=== PATIENT | male | born 1985 | race African-American/Black ===

== ENCOUNTER 2023-05-21 23:43 | Emergency (ER) | payer OTHER ==
[~2023-05-21] VITALS: Ht 180.3 cm; Wt 90.7 kg
[2023-05-22 00:03] VITALS: O2SAT 98
[2023-05-22] MEDS ORDERED: TRAMADOL HCL 50 MG TAB PO STA (00:41)
[2023-05-22] MEDS ORDERED: TRAMADOL HCL 50 MG TAB ONE (00:50)
[2023-05-22] MEDS ORDERED: ULTRAM 50MG50 MG PO (00:52)
== END 2023-05-22 01:26 | disposition home or self-care (01) ==
LOC: FSED 23:55
DX: S91.311A Laceration without foreign body, right foot, initial encounter (principal); S93.491A Sprain of other ligament of right ankle, initial encounter; W22.09XA Striking against other stationary object, initial encounter; Y93.01 Activity, walking, marching and hiking; Y92.89 Other specified places as the place of occurrence of the external cause
CPT/HCPCS: 99284

== ENCOUNTER 2023-05-24 12:48 | Emergency (ER) | payer OTHER ==
[~2023-05-24] VITALS: Ht 172.7 cm; Wt 72.6 kg
[~2023-05-24 12:48] MED LIST: ULTRAM 50MG50 MG PO
[2023-05-24 13:12] VITALS: O2SAT 97
[2023-05-24] MEDS ORDERED: CLEOCIN HCL300 MG PO (13:59)
== END 2023-05-24 14:12 | disposition home or self-care (01) ==
LOC: FSED 12:56
DX: Z48.01 Encounter for change or removal of surgical wound dressing (principal)
CPT/HCPCS: 99282

== ENCOUNTER 2024-09-05 13:20 | Emergency (ER) | payer OTHER ==
[~2024-09-05] VITALS: Ht 180.3 cm; Wt 93.0 kg
[~2024-09-05 13:20] MED LIST changes: +CLEOCIN HCL300 MG PO; +NEO-SYNEPHRINE15 M1
[2024-09-05] MEDS ORDERED: LIDOCAINE HCL 2% LOCAL INJ 5 ML SDV VIAL INJ ONE (14:51)
[2024-09-05] MEDS: AZITHROMYCIN 250 MG TAB PO ONE (14:55)
[2024-09-05] MEDS: CEFTRIAXONE 500 MG VIAL IM ONE (14:55)
[2024-09-05 15:10] LABS: CLARITY,URINE SL CLOUDY (CLEAR); COLOR,URINE YELLOW (YELLOW); LEUKOCYTE ESTERASE ,URINE 1+ (NEGATIVE); NITRITE,URINE NEGATIVE (NEGATIVE); PH,URINE 5.5 (5 - 7); PROTEIN,URINE DIPSTICK NEGATIVE (NEGATIVE)
[2024-09-05 15:11] LABS: BILIRUBIN,URINE NEGATIVE (NEGATIVE); GLUCOSE, URINE NEGATIVE (NEGATIVE); KETONES,URINE NEGATIVE (NEGATIVE); URINE UROBILINOGEN 0.2 mg/dL (0.2 - 1)
[2024-09-05] MEDS ORDERED: DOXYCYCLINE HY100 MG PO (15:13)
[2024-09-05 15:19] VITALS: PULSE 65; RESP 16; TEMP 98; O2SAT 100
[2024-09-05 15:20] LABS: WBC,URINE (MAN) >50 /HPF (0-5)
[2024-09-05 15:21] LABS: BACTERIA,URINE MODERATE /HPF; EPITHELIAL CELLS,URINE FEW /LPF; MUCUS,URINE MANY (RARE); TRANSITIONAL EPI CELLS,URINE FEW
[2024-09-09 15:13] LABS: CHLAMYDIA NUC AMP Positive (Negative)
== END 2024-09-05 15:19 | disposition home or self-care (01) ==
LOC: FSED 13:27
DX: Z20.2 Contact with and (suspected) exposure to infections with a predominantly sexual mode of transmission (principal)
CPT/HCPCS: 81001; 87491; 87591; 99283; J0696; J2003

== ENCOUNTER 2025-02-08 22:51 | Emergency (ER) | payer OTHER ==
[~2025-02-08] VITALS: Ht 180.3 cm; Wt 93.0 kg
[~2025-02-08 22:51] MED LIST changes: +DOXYCYCLINE HY100 MG PO
[2025-02-08 22:54] VITALS: PULSE 90; RESP 18; TEMP 98.1
[2025-02-08] MEDS ORDERED: TYLENOL325 MG PO (23:14)
[2025-02-08] MEDS ORDERED: AMOX TR-K CLV1 EAC2 PO (23:14)
[2025-02-08] MEDS ORDERED: IBUPROFEN600 MG PO (23:14)
[2025-02-08] MEDS: CEFTRIAXONE 1 GM VIAL IM ONE (23:28)
[2025-02-08] MEDS: IBUPROFEN 200 MG TAB PO ONE (23:29)
[2025-02-08 23:30] VITALS: BP 138/86; PULSE 90; RESP 18; TEMP 98.1; O2SAT 99
[2025-02-08] MEDS: ACETAMINOPHEN 325 MG TAB PO ONE (23:30)
== END 2025-02-08 23:44 | disposition home or self-care (01) ==
LOC: FSED 22:53
DX: K02.7 Dental root caries (principal); R68.84 Jaw pain
CPT/HCPCS: 36415; 82948; 99283; J0696